=== PATIENT | male | born 2000 | race African-American/Black ===

== ENCOUNTER 2023-07-14 17:52 | Emergency (ER) | payer MEDICAID ==
[~2023-07-14] VITALS: Ht 175.3 cm; Wt 73.0 kg
[2023-07-14 18:06] VITALS: BP 118/74; PULSE 90; RESP 16; TEMP 98.6; O2SAT 99
[2023-07-14] MEDS ORDERED: IBUPROFEN 600MG TABLET PO ONE (18:45)
== END 2023-07-14 20:30 ==
LOC: ER 17:52
DX: M54.2 Cervicalgia (principal); I10 Essential (primary) hypertension
CPT/HCPCS: 99283